=== PATIENT | male | born 1995 | race Hispanic/Latino ===

== ENCOUNTER 2021-06-28 23:06 | Emergency (ER) | payer SELFPAY ==
--- NOTE | ~2021-06-28 | XR_ITS ---
EXAMINATION: XR chest 2V DATE: 06/28/2021 23:49 INDICATION: Chest pain. Short of breath. Fever. TECHNIQUE: Frontal and lateral views of the chest were obtained. COMPARISON: None. FINDINGS: Lung volumes are small. There are airspace opacities in the lower lung zones. No pleural ef fusion or pneumothorax. The heart size is normal. IMPRESSION: 1. Small lung volumes with airspace opacities in the lower lung zones, consistent with atelectasis ve rsus pneumonia. Reviewed, dictated and finalized at location A. RICAL CONTROL MACHINE TOOL OPERATOR IMPRESSION: 1. Small lung volumes with airspace opacities in the lower lung zones, consiste nt with atelectasis versus pneumonia.
[2021-06-28 23:12] VITALS: BP 124/83; PULSE 115; RESP 20; TEMP 37; O2SAT 96
--- NOTE | 2021-06-28 23:15 | ECG_ITS ---
Measurements Intervals [place] Rate: 110 P: 146 UT: 144 QRS: 133 QRSD: 86 T: 177 QT: 313 QTc: 425 Interpretive Statements SINUS TACHYCARDIA ARM LEADS REVERSED MINIMAL Q WAVES- INFERIOR LEADS BORDERLINE T WAVE ABNORMALITY- INFERIOR LEADS ABNORMAL ECG Electronically Signed On 06-29-2021 8:02:01 BLOCKING MACHINE TENDER by Conrado Hancock D.O.
--- NOTE | 2021-06-28 23:47 | PC.NURSE ---
Patient in xray.
[2021-06-29 01:45] VITALS: PULSE 100
[2021-06-29 01:49] VITALS: BP 126/91; PULSE 96; RESP 28; O2SAT 97
[2021-06-29 01:55] VITALS: PULSE 100
[2021-06-29 02:00] VITALS: O2SAT 99
[2021-06-29] MEDS: KETOROLAC 30 MG/ML VIAL (*BKC) IV PUSH (02:01)
[2021-06-29] MEDS: ALBUTEROL SULFATE NEB 2.5 MG/0.5 ML INH 5 MG INHALATION (02:11)
[2021-06-29] MEDS: IPRATROPIUM BR 0.02% INH SOLN 0.5 MG/2.5 ML VIAL INHALATION (02:11)
[2021-06-29 02:16] LABS: Hematocrit 42.3 % (42.0-52.0); Hemoglobin 14.8 g/dL (14.0-18.0); Immature Granulocyte Absolute 0.02 K/mm3 (0.00-0.031); Immature Granulocyte Percent A 0.3 % (0-0.5); Lymphocytes Percent Auto 11.3 % (18.3-44.2); Mean Corpuscular Hemoglobin 31.8 pg (26-34); Mean Corpuscular Volume 90.8 fl (80-100); Mean Platelet Volume 9.6 fl (7.4-10.4); Monocytes Absolute Auto 0.4 K/mm3 (0.1-0.6); Monocytes Percent Auto 6.6 % (2.6-8.5); Neutrophils Absolute Auto 5.1 K/mm3 (1.3-6.7); Neutrophils Percent Auto 81.8 % (45.5-73.1); Platelet Count Result 142 k/mm3 (150-375); Red Blood Count 4.66 M/mm3 (4.6-6.20); Red Cell Distribution Width 11.8 % (11.5-14.5); White Blood Count 6.2 K/mm3 (4.5-10.0)
[2021-06-29] MEDS: BENZONATATE 100 MG CAPSULE 200 MG PO (02:22)
[2021-06-29 02:33] LABS: EDCOVIDSCREEN Negative (Negative); Partial Thromboplastin Time 28.7 SECONDS (22.3-36.8)
[2021-06-29 02:44] LABS: Alanine Aminotransferase 55 U/L (4-50); Albumin Level 4.2 g/dL (3.5-5.1); Alkaline Phosphatase 100 U/L (38-126); Anion Gap 11 mmol/L (8-16); Aspartate Amino Transferase 54 U/L (17-59); Bilirubin,Total 0.6 mg/dL (0.2-1.3); Blood Urea Nitrogen 12 mg/dL (9-20); Calcium 8.3 mg/dL (8.4-10.2); Carbon Dioxide 30 mmol/L (22-30); Chloride 96 mmol/L (98-107); Estimated Glomerular Filt Rate > 60; Glucose 116 mg/dL (65-110); Lipase 90 U/L (23-300); Potassium 3.9 mmol/L (3.4-5.0); Sodium 137 mmol/L (137-145)
[2021-06-29 02:56] LABS: Troponin I < 0.012 ng/mL (0.000-0.034)
[2021-06-29 03:03] VITALS: PULSE 88; RESP 29; O2SAT 97
--- NOTE | 2021-06-29 03:07 | ED.GENADULT ---
HPI - General Adult General Chief complaint: Chest Pain Stated complaint: Fever, cough, chest pain, sob Time Seen by Provider: 06/29/21 01:37 History of Present Illness HPI narrative: Patient 26-year-old gentleman presents emergency department with chief complaint of chest pain body aches fever. Patient states for several days reports he had some discomfort in his chest with this reports he been coughing patient states that symptoms or not improved by anything nor they worsened by anything. Patient reports he has not been vaccinated for Covid. Related Data Allergies Allergy/AdvReac Type Severity Reaction Status Date / Time No Known Allergies Allergy Verified 06/29/21 01:52 Review of Systems Review of Systems: A 10 system review of systems was completed on the patient and is negative except for what is stated in the HPI. Nursing and ancillary documentation was reviewed. Exam Narrative: GENERAL: Well-appearing, well-nourished, and in no acute distress. HEAD: Normocephalic, atraumatic. EYES: PERRLA and EOMI. ENT: Nares clear, no rhinorrhea or epistaxis. Mucous membranes moist. NECK: Supple. CHEST: Clear to auscultation. No respiratory distress. HEART: Regular rate and rhythm. No murmur heard. Normal peripheral pulses. ABDOMEN: Soft, nontender, nondistended, normal active bowel sounds. EXTREMITIES: Normal range of motion. No edema. SKIN: Warm, dry, no rash. NEURO: No focal deficits. Alert and oriented x3. PSYCH: Normal mood and affect. Course Course Emergency Course: Chest x-ray shows no evidence of focal infiltrate EKG shows sinus tachycardia rate [address] elevation or depression Vital Signs Vital signs: Vital Signs Temperature 37.0 C 06/28/21 23:12 Pulse Rate 115 H 06/28/21 23:12 Respiratory Rate 20 06/28/21 23:12 Blood Pressure 124/83 06/28/21 23:12 Pulse Oximetry 96 06/28/21 23:12 Temperature 37.0 C 06/28/21 23:12 Pulse Rate 88 06/29/21 03:03 Respiratory Rate 29 H 06/29/21 03:03 Blood Pressure 126/91 H 06/29/21 01:49 Pulse Oximetry 97 06/29/21 03:03 Medical Decision Making Vital Signs Vital Signs: Vital Signs Temperature 37.0 C 06/28/21 23:12 Pulse Rate 115 H 06/28/21 23:12 Respiratory Rate 20 06/28/21 23:12 Blood Pressure 124/83 06/28/21 23:12 Pulse Oximetry 96 06/28/21 23:12 Temperature 37.0 C 06/28/21 23:12 Pulse Rate 88 06/29/21 03:03 Respiratory Rate 29 H 06/29/21 03:03 Blood Pressure 126/91 H 06/29/21 01:49 Pulse Oximetry 97 06/29/21 03:03 Lab Data Result diagrams: 06/29/21 02:06 06/29/21 02:06 Labs: Lab Results 06/29/21 06/29/21 06/29/21 Range/Units 02:06 02:06 02:06 WBC 6.2 (4.5-10.0) K/mm3 RBC 4.66 (4.6-6.20) M/mm3 Hgb 14.8 (14.0-18.0) g/dL Hct 42.3 (42.0-52.0) % MCV 90.8 (80-100) fl MCH 31.8 (26-34) pg MCHC 35.0 (32-36) g/dl RDW 11.8 (11.5-14.5) % Plt Count 142 L (150-375) k/mm3 MPV 9.6 (7.4-10.4) fl Immature Gran % (Auto) 0.3 (0-0.5) % Neut % (Auto) 81.8 H (45.5-73.1) % Lymph % (Auto) 11.3 L (18.3-44.2) % Kerr % (Auto) 6.6 (2.6-8.5) % Eos % (Auto) 0.0 (0-4.4) % Baso % (Auto) 0.0 L (0.2-1.2) % Lymph # (Auto) 0.70 L (0.9-3.2) K/mm3 Kerr # (Auto) 0.4 (0.1-0.6) K/mm3 Eos # (Auto) 0.0 (0-0.3) K/mm3 Baso # (Auto) 0.0 (0.0-0.1) K/mm3 Abs Immat Gran (auto) 0.02 (0.00-0.031) K/mm3 Absolute Neuts (auto) 5.1 (1.3-6.7) K/mm3 Absolute Nucleated RBC 0.0 (0.0-0.012) K/mm3 Nucleated RBC % 0.0 (0.0-0.2) % PT 13.0 (11.1-14.7) Seconds INR 1.0 APTT 28.7 (22.3-36.8) SECONDS Sodium 137 (137-145) mmol/L Potassium 3.9 (3.4-5.0) mmol/L Chloride 96 L (98-107) mmol/L Carbon Dioxide 30 (22-30) mmol/L Anion Gap 11 (8-16) mmol/L BUN 12 (9-20) mg/dL Creatinine 1.00 (0.7-1.3) mg/dL Estim Creat Clear Calc Not Reportable Estimate
[2021-06-29 03:43] LABS: Troponin I < 0.012 ng/mL (0.000-0.034)
[2021-06-29 04:32] VITALS: BP 117/74; PULSE 90; RESP 25; O2SAT 97
== END 2021-06-29 04:35 | disposition home or self-care (01) ==
PROVIDERS: Emergency Provider Emergency Medicine
DX: R07.89 Other chest pain (principal); B34.9 Viral infection, unspecified; Z20.822 Contact with and (suspected) exposure to COVID-19
CPT/HCPCS: 36415; 71046; 80053; 83690; 84484; 85025; 85610; 85730; 87081; 87426; 87804; 87880; 93005; 94640; 96374; 99284; A9270; C9803; J1885

== ENCOUNTER 2021-06-29 18:27 | Inpatient (IN) | payer OTHER, SELFPAY ==
[2021-06-29] VITALS (10 sets, daily range): BP systolic 111–126; BP diastolic 67–76; PULSE 91–106; RESP 18–36; TEMP 36.5; O2SAT 89–100; BMI 28.0
--- NOTE | ~2021-06-29 | CT_ITS ---
EXAMINATION: CTA chest PE protocol DATE: 06/29/2021 21:12 VAMP CREASER INDICATION: Pneumonia. Shortness of breath. Hypoxia. TECHNIQUE: Computed tomographic angiography (CTA) of the chest was performed with 100 mL Omnipaque-35 0 intravenous contrast. The dose-length product was 801.56 mGy-cm. Maximum intensity projection 3D-re constructions of the aorta and other arteries were constructed by the technologist on a separate work station. Automated exposure control and iterative reconstruction technique were employed. COMPARISON: None. FINDINGS: Small hiatal hernia. Heart size is normal. No significant pleural or pericardial effusion. Study is technically adequate without evidence for pulmonary embolism. Evaluation of lower lobe pulmo nary arteries limited by motion. No thoracic lymphadenopathy. No significant pleural or pericardial e ffusion. The upper abdomen is unremarkable. Patchy bilateral groundglass opacities, consistent with p neumonia. No endobronchial lesions. IMPRESSION: 1. Patchy groundglass opacities bilaterally, consistent with pneumonia. Reviewed, dictated and finalized at location A. CREASER
--- NOTE | 2021-06-29 19:14 | ECG_ITS ---
Measurements Intervals [place] Rate: 101 P: 47 AL: 155 QRS: 55 QRSD: 88 T: 30 QT: 318 QTc: 413 Interpretive Statements SINUS TACHYCARDIA MINIMAL Q WAVES- INFERIOR LEADS BORDERLINE ECG Electronically Signed On 06-29-2021 20:22:45 MANAGER OF PHARMACY by Conrado Hancock D.O.
--- NOTE | 2021-06-29 19:16 | ED.GENADULT ---
HPI - General Adult General Chief complaint: Shortness of Breath/Dyspnea Stated complaint: respiratory Time Seen by Provider: 06/29/21 19:00 Source: patient and RN notes reviewed History of Present Illness HPI narrative: Patient is a 26 y/o male complaining of moderate SOB for 4 days. There is no alleviating or exacerbating factor. He also has cough and chest pain. He was seen earlier today and had COVID test, which was negative. He returned because he continues to have SOB. Related Data Allergies Allergy/AdvReac Type Severity Reaction Status Date / Time No Known Allergies Allergy Verified 06/29/21 01:52 Review of Systems Constitutional: Constitutional: Denies chills, Denies fever(s), Denies headache(s) and Denies weakness Eyes: Eyes: Denies blurry vision ENT: Denies headache(s) and Denies neck pain Cardiovascular: Cardiovascular: Reports chest pain and Reports dyspnea Respiratory: Respiratory: Reports cough and Reports dyspnea Gastrointestinal: Gastrointestinal: Denies abdominal pain, Denies diarrhea, Denies nausea and Denies vomiting Genitourinary: Genitourinary: Denies hematuria and Denies dysuria Musculoskeletal: Musculoskeletal: Denies back pain and Denies neck pain Neurologic: Denies headache(s) and Denies weakness Exam Const: General: no acute distress and well developed Orientation/consciousness: oriented to person, oriented to place, oriented to time and patient oriented x3 HENMT: Head: normocephalic Ears: external ears normal General nose exam: Normal external nose present Eyes: General: appearance normal, both eyes and all related structures Conjunctivae: conjunctivae normal Neck: Neck: normal visual inspection and full ROM Chest: Chest palpation & inspection: normal inspection of the chest and no tenderness Resp: Effort & Inspection: tachypneic Auscultation: clear to auscultation bilaterally Cardio: Rate: regular rate Rhythm: regular rhythm GI: GI Palp: No abdominal tenderness and Yes Soft to palpation Skin: General skin exam: normal color and turgor normal Neuro: General: oriented to person, oriented to place, oriented to time and patient oriented x3 Cognition (Neuro): normal cognition Extrem: General: normal to inspection, full ROM and no pedal edema Psych: Appearance: grossly normal Mental Status: mental status grossly normal Affect: normal affect Course Reevaluation(s) Reevaluation #1: Patient had pulse ox of 89-90% on RA. He is placed back on O2. Date: 06/29/21 Time: 21:25 Consultations Consultation #1: Discussed with Dr. Galeano, who agrees to admit. Date: 06/29/21 Time: 21:33 Vital Signs Vital signs: Vital Signs Pulse Rate 106 H 06/29/21 18:38 Respiratory Rate 36 H 06/29/21 18:38 Blood Pressure 126/75 06/29/21 18:38 Pulse Oximetry 95 06/29/21 18:38 Pulse Rate 99 06/29/21 22:22 Respiratory Rate 23 H 06/29/21 22:22 Blood Pressure 122/76 06/29/21 22:22 Pulse Oximetry 100 06/29/21 22:22 Medical Decision Making Vital Signs Vital Signs: Vital Signs Pulse Rate 106 H 06/29/21 18:38 Respiratory Rate 36 H 06/29/21 18:38 Blood Pressure 126/75 06/29/21 18:38 Pulse Oximetry 95 06/29/21 18:38 Pulse Rate 99 06/29/21 22:22 Respiratory Rate 23 H 06/29/21 22:22 Blood Pressure 122/76 06/29/21 22:22 Pulse Oximetry 100 06/29/21 22:22 Lab Data Result diagrams: 06/29/21 19:50 06/29/21 19:50 Labs: Lab Results 06/29/21 06/29/21 06/29/21 Range/Units 19:50 19:50 20:03 WBC 9.1 (4.5-10.0) K/mm3 RBC 4.43 L (4.6-6.20) M/mm3 Hgb 13.9 L (14.0-18.0) g/dL Hct 40.4 L (42.0-52.0) % MCV 91.2 (80-100) fl MCH 31.4 (26-34) pg MCHC 34.4 (32-36) g/dl RDW 11.8 (11.5-14.5) % Plt Count 185 (150-375) k/mm3 MPV 9.3 (7.4-10.4) fl Immature Gran % (Auto) 0.4 (0-0.5) % Neut % (Auto) 84.3 H (45.5-73.1) % Lymph % (Auto) 9.3 L (18.3-44.2) % Mon
--- NOTE | 2021-06-29 19:24 | PC.NURSE ---
Assumed care of pt at this time. Pt alert and upright on stretcher, on 2L NC. Per EDP Raymond, discontinue O2. If O2 saturations drop, restart oxygen therapy.
[2021-06-29 20:04] LABS: Basophils Percent Auto 0.2 % (0.2-1.2); Hematocrit 40.4 % (42.0-52.0); Hemoglobin 13.9 g/dL (14.0-18.0); Immature Granulocyte Absolute 0.04 K/mm3 (0.00-0.031); Immature Granulocyte Percent A 0.4 % (0-0.5); Lymphocytes Absolute Auto 0.85 K/mm3 (0.9-3.2); Lymphocytes Percent Auto 9.3 % (18.3-44.2); Mean Corpuscular HGB Conc 34.4 g/dl (32-36); Mean Corpuscular Hemoglobin 31.4 pg (26-34); Mean Corpuscular Volume 91.2 fl (80-100); Mean Platelet Volume 9.3 fl (7.4-10.4); Monocytes Absolute Auto 0.5 K/mm3 (0.1-0.6); Monocytes Percent Auto 5.8 % (2.6-8.5); Neutrophils Absolute Auto 7.7 K/mm3 (1.3-6.7); Neutrophils Percent Auto 84.3 % (45.5-73.1); Platelet Count Result 185 k/mm3 (150-375); Red Blood Count 4.43 M/mm3 (4.6-6.20); Red Cell Distribution Width 11.8 % (11.5-14.5); White Blood Count 9.1 K/mm3 (4.5-10.0)
--- NOTE | 2021-06-29 20:05 | PCRCNOTE ---
pt not cooperative for ABG. therapist unable to obtain. notified.
[2021-06-29 20:20] LABS: Alanine Aminotransferase 47 U/L (4-50); Albumin Level 4.2 g/dL (3.5-5.1); Alkaline Phosphatase 92 U/L (38-126); Anion Gap 9 mmol/L (8-16); Aspartate Amino Transferase 43 U/L (17-59); Bilirubin,Total 0.9 mg/dL (0.2-1.3); Blood Urea Nitrogen 11 mg/dL (9-20); Calcium 8.2 mg/dL (8.4-10.2); Carbon Dioxide 29 mmol/L (22-30); Chloride 95 mmol/L (98-107); Estimated CRCL calculation 87 ml/min; Estimated Glomerular Filt Rate > 60; Glucose 116 mg/dL (65-110); Potassium 3.8 mmol/L (3.4-5.0); Sodium 133 mmol/L (137-145)
[2021-06-29 20:30] LABS: NT Pro B Type Natriuretic Pept 20 pg/mL (5-100)
[2021-06-29] MEDS: DEXAMETHASONE SOD PHOS INJ 4 MG/ML VIAL 6 MG IV PUSH (21:25)
[2021-06-29] MEDS: ALBUTEROL SULFATE (*SP) INHALER 1 PUFF (21:45)
--- NOTE | 2021-06-29 23:34 | PM.IMHP ---
H&P: HPI History of Present Illness Date/Time: 06/29/21 23:34 Chief Complaint: Shortness of breath Narrative: Patient is a 26 y/o male who presents back to the ED again today for worsening shortness of breath and chest pain along with cough. He was seen earlier today for the similar symptoms and was tested for COVID which came back negative. He has been having the symptoms for past 4 5 days now. He denies any exposure to COVID. He was not hypoxemic earlier today and was sent home on supportive treatment. He comes back with worsening shortness of breath and was noted to be hypoxic needing few L of oxygen supplementation. CTA was done which was negative for PE but does show pneumonia on bilateral lungs. Of PCR COVID is sent out again as COVID is highly suspected with the appearance of the CTA lung findings. He is admitted for further evaluation and management. Review of Systems Review of Systems: - CONSTITUTIONAL: Denies weight loss, reports fever and chills. - HEENT: Denies changes in vision and hearing - RESPIRATORY: Reports SOB and cough. - CV: Denies palpitations and reports CP. - GI: Denies abdominal pain, nausea, vomiting and diarrhea. - : Denies dysuria and urinary frequency. - MSK: Denies myalgia and joint pain. - SKIN: Denies rash and pruritus. - NEUROLOGICAL: Denies headache and syncope. - PSYCHIATRIC: Denies recent changes in mood. Denies anxiety and depression. All systems reviewed & are unremarkable except as noted in HPI and below Constitutional: Constitutional: Reports fatigue and Reports weakness Neurologic: Reports weakness Endocrine: Endocrine: Reports fatigue Meds Home Medications and Allergies Home Medications Medication Instructions Recorded Confirmed Type albuterol sulfate 2 puff INHALATION QID PRN #8.5 g 06/29/21 Rx benzonatate 200 mg PO TID PRN #21 cap 06/29/21 Rx Allergies Allergy/AdvReac Type Severity Reaction Status Date / Time No Known Allergies Allergy Verified 06/29/21 01:52 Vital Signs Vital Signs - 24 hr 06/29/21 18:38 06/29/21 19:26 06/29/21 20:12 Pulse Rate 106 H 104 H 103 H Respiratory Rate 36 H 31 H 29 H Blood Pressure 126/75 116/71 111/69 Pulse Oximetry 95 94 95 06/29/21 21:11 06/29/21 21:20 06/29/21 21:21 Pulse Rate 105 H Respiratory Rate 30 H Blood Pressure Pulse Oximetry 94 89 L 94 06/29/21 22:11 06/29/21 22:22 Pulse Rate 99 Respiratory Rate 23 H Blood Pressure 122/76 Pulse Oximetry 98 100 Exam Narrative: GENERAL: The patient is well developed, not in acute distress HEENT: Nonicteric sclerae, PERRLA, EOMI. Oropharynx clear. Moist mucous membranes. Conjunctivae appear well perfused. CHEST: Chest wall is nontender. HEART: Regular rate and rhythm without murmur, rubs, or gallops LUNGS: Coarse breath sounds bilaterally. no respiratory distress ABDOMEN: Soft, positive bowel sounds, non-tender, no organomegaly. SKIN: No rash, no excessive bruising, petechiae, or purpura. NEUROLOGIC: Cranial nerves II-XII intact, alert and oriented x 3, no gross motor deficits EXTREMITIES: no edema, cyanosis or clubbing H&P: Results Labs Labs: Short CBC 06/29/21 Range/Units 19:50 WBC 9.1 (4.5-10.0) K/mm3 Hgb 13.9 L (14.0-18.0) g/dL Hct 40.4 L (42.0-52.0) % Plt Count 185 (150-375) k/mm3 BMP 06/29/21 19:50 Sodium 133 L Potassium 3.8 Chloride 95 L Carbon Dioxide 29 BUN 11 Creatinine 1.00 Glucose 116 H Calcium 8.2 L Liver Function 06/29/21 Range/Units 19:50 Total Bilirubin 0.9 (0.2-1.3) mg/dL AST 43 (17-59) U/L ALT 47 (4-50) U/L Alkaline Phosphatase 92 (38-126) U/L Albumin 4.2 (3.5-5.1) g/dL Assessment and Plan Assessment and plan (1) Acute respiratory failure with hypoxia: Code(s): J96.01 - Acute respiratory failure with hypoxia Status: Acute (2) Pneumonia: Qualifiers: Laterality: bilateral Lung location: unspecified part o
[2021-06-30 04:00] VITALS: BP 113/69; PULSE 81; RESP 18; TEMP 36.4; O2SAT 98
[2021-06-30 06:25] LABS: CRP 5.3 mg/dL (<1.0); Lactate Dehydrogenase 766 U/L (313-618)
[2021-06-30 07:01] VITALS: BMI 28.0
--- NOTE | 2021-06-30 07:04 | PC.NURSE ---
[address] Admission Note: The patient,Phani Bedoya,26 y/o, was given written information regarding hospital policies, unit procedures and contact persons. Patient's smoking status: . I certify that the inpatient services were ordered in accordance with Medicare regulations governing the order. This includes certification that hospital inpatient services are reasonable and necessary and in the case of services not specified as inpatient-only under 42 CFR 419.22(n), that they are appropriately provided as inpatient services in accordance to with the 2-midnight benchmark under 43 CFR 412.3(e)
[2021-06-30 07:07] VITALS: BMI 28.0
[2021-06-30] MEDS: ENOXAPARIN 40 MG/0.4 ML SYRINGE SUB-Q (10:06)
[2021-06-30 12:00] VITALS: BP 113/63; PULSE 88; RESP 18; TEMP 35.9; O2SAT 99
[2021-06-30 16:00] VITALS: BP 128/70; PULSE 89; RESP 18; TEMP 36.4; O2SAT 98
--- NOTE | 2021-06-30 16:56 | PM.IMPN ---
Progress Note: A&P Assessment and Plan (1) Acute respiratory failure with hypoxia: Code(s): J96.01 - Acute respiratory failure with hypoxia Status: Acute Assessment and Plan: Secondary to pneumonia. CTA negative for PE. He has required up to 2 L per nasal cannula. Continue supplemental O2 as needed with goal saturation 92% or above He will need a home O2 eval prior to discharge (2) Pneumonia: Qualifiers: Laterality: bilateral Lung location: unspecified part of lung Pneumonia type: due to unspecified organism Qualified Code(s): J18.9 - Pneumonia, unspecified organism Code(s): J18.9 - Pneumonia, unspecified organism Status: Acute Assessment and Plan: CXR and CTA show bilateral ground-glass opacities. Clinical picture is highly suspicious for COVID-19 with elevated inflammatory markers. Continue azithromycin and ceftriaxone while awaiting COVID-19 test results or procalcitonin levels Continue IV dexamethasone Consider addition of remdesivir if further O2 requirements. Supportive care to include bronchodilators, expectorants, antipyretics, incentive spirometry Supplemental O2 as needed Blood cultures are pending (3) Person under investigation for COVID-19: Code(s): Z20.822 - Contact with and (suspected) exposure to COVID-19 Status: Acute Assessment and Plan: He denies any recent COVID-19 positive contacts. He has not been vaccinated for COVID Rapid COVID test negative, however clinically highly suspicious for COVID. PCR is pending. Will continue with treatment as above while awaiting confirmatory testing with PCR Continue to trend inflammatory markers Subjective Date/time seen: 06/30/21 16:56 Interval history: Date of service: 06/30/2020 Phani Bedoya is a 26-year-old previously healthy male who is seen in follow-up for pneumonia, under investigation for COVID-19. He is feeling quite short of breath today. Any deep breaths or exertion caused him to feel more short of breath. He has pleuritic chest discomfort with deep inspiration. He endorses dry cough. He feels that he has sputum he needs to expectorates but is unable to. His appetite is good. He denies anosmia or dysgeusia. He is eating well. Endorsed sweats but denies fevers or chills. Denies abdominal pain, nausea, or vomiting. No diarrhea. Reports regular bowel movements. Denies urinary symptoms. Denies headache or body aches. Review of Systems Review of Systems: All systems reviewed & are unremarkable except as noted in HPI and below Exam Narrative: Mr. Bedoya is well-nourished, well-appearing 26-year-old male who is lying supine in bed. He appears comfortable and is in NARD. Neuro: awake, alert and oriented x4, speech clear, no focal neuro deficits noted HEENMT: normocephalic, atraumatic, EOMI, sclerae anicteric Neck: supple, no lymphadenopathy Respiratory: Diminished breath sounds bilaterally without crackles, rhonchi, or wheezes, nonlabored breathing Cardio: regular rate, regular rhythm with S1-S2 Abdomen: nondistended, normoactive bowel sounds, soft, nontender to palpation Extremities: no edema, erythema, or tenderness to palpation, DP pulses 2+ bilaterally Skin: no rashes or lesions, warm and dry Psych: appropriate mood and affect, judgment and insight intact Objective Data Vital Signs Vital Signs: Vital Signs - 24 hr 06/29/21 18:38 06/29/21 19:26 06/29/21 20:12 Temperature Pulse Rate 106 H 104 H 103 H Respiratory Rate 36 H 31 H 29 H Blood Pressure 126/75 116/71 111/69 Pulse Oximetry 95 94 95 06/29/21 21:11 06/29/21 21:20 06/29/21 21:21 Temperature Pulse Rate 105 H Respiratory Rate 30 H Blood Pressure Pulse Oximetry 94 89 L 94 06/29/21 22:11 06/29/21 22:22 06/29/21 23:23 Temperature Pulse Rate 99 99 Respiratory Rate 23 H 28 H Blood Pressure 122/76 Pulse Oximetry 98 100 96 06/29/21 23:30 06/30/21 04
[2021-06-30 19:54] LABS: SARS-CoV-2 RNA PCR Positive (Negative)
[2021-06-30 20:00] VITALS: BP 134/71; PULSE 77; RESP 20; TEMP 36.7; O2SAT 94; O2SAT 95
[2021-06-30] MEDS: guaiFENesin 12 HR 600 MG TABCR PO (21:58)
[2021-06-30 23:47] VITALS: BP 118/65; PULSE 73; RESP 18; TEMP 36.2; O2SAT 98
[2021-07-01 04:00] VITALS: BP 119/67; PULSE 78; RESP 18; TEMP 36.8; O2SAT 99
[2021-07-01] MEDS: ALBUTEROL SULFATE (*SP) INHALER 2 PUFF INHALATION (04:46)
[2021-07-01] MEDS: ACETAMINOPHEN 325 MG TABLET 650 MG PO ×3 (05:56→21:42)
[2021-07-01 08:00] VITALS: BP 110/63; PULSE 75; RESP 20; TEMP 36.6; O2SAT 96
[2021-07-01 09:16] LABS: Basophils Percent Auto 0.1 % (0.2-1.2); Hemoglobin 13.8 g/dL (14.0-18.0); Immature Granulocyte Absolute 0.09 K/mm3 (0.00-0.031); Immature Granulocyte Percent A 0.6 % (0-0.5); Lymphocytes Absolute Auto 0.73 K/mm3 (0.9-3.2); Lymphocytes Percent Auto 4.8 % (18.3-44.2); Mean Corpuscular HGB Conc 34.5 g/dl (32-36); Mean Corpuscular Hemoglobin 31.7 pg (26-34); Monocytes Absolute Auto 0.8 K/mm3 (0.1-0.6); Neutrophils Absolute Auto 13.6 K/mm3 (1.3-6.7); Neutrophils Percent Auto 89.5 % (45.5-73.1); Platelet Count Result 292 k/mm3 (150-375); Red Blood Count 4.35 M/mm3 (4.6-6.20); Red Cell Distribution Width 11.9 % (11.5-14.5); White Blood Count 15.2 K/mm3 (4.5-10.0)
[2021-07-01 09:19] LABS: Alanine Aminotransferase 68 U/L (4-50); Estimated CRCL calculation 107 ml/min; Estimated Glomerular Filt Rate > 60
[2021-07-01 09:20] LABS: Prothrombin Time 13.5 Seconds (11.1-14.7)
[2021-07-01 10:18] LABS: Alanine Aminotransferase 71 U/L (4-50); Albumin Level 4.2 g/dL (3.5-5.1); Alkaline Phosphatase 93 U/L (38-126); Anion Gap 7 mmol/L (8-16); Aspartate Amino Transferase 48 U/L (17-59); Bilirubin,Total 0.6 mg/dL (0.2-1.3); Blood Urea Nitrogen 21 mg/dL (9-20); CRP 2.5 mg/dL (<1.0); Calcium 8.8 mg/dL (8.4-10.2); Carbon Dioxide 30 mmol/L (22-30); Chloride 96 mmol/L (98-107); Estimated CRCL calculation 107 ml/min; Estimated Glomerular Filt Rate > 60; Glucose 124 mg/dL (65-110); Lactate Dehydrogenase 613 U/L (313-618); Sodium 133 mmol/L (137-145)
[2021-07-01] MEDS: ENOXAPARIN 40 MG/0.4 ML SYRINGE SUB-Q (11:37)
[2021-07-01] MEDS: guaiFENesin 12 HR 600 MG TABCR PO ×2 (11:37→20:38)
[2021-07-01 12:00] VITALS: BP 120/75; PULSE 85; RESP 18; TEMP 36.4; O2SAT 99
[2021-07-01] MEDS: REMDESIVIR 200 MG/NS 250 ML 200 MG/250 ML BAG 250 MG IVPB (12:16)
--- NOTE | 2021-07-01 14:36 | PM.IMPN ---
Progress Note: A&P Assessment and Plan (1) Acute respiratory failure with hypoxia: Code(s): J96.01 - Acute respiratory failure with hypoxia Status: Acute Assessment and Plan: Secondary to COVID-19 pneumonia. CTA negative for PE. He has required up to 4 L per nasal cannula. Currently maintaining adequate O2 sats on 3 L per nasal cannula Continue supplemental O2 as needed with goal saturation 92% or above He will need a home O2 eval prior to discharge (2) Pneumonia due to COVID-19 virus: Code(s): U07.1 - COVID-19; J12.82 - Pneumonia due to coronavirus disease 2018 Status: Acute Assessment and Plan: Positive PCR test on 06/29/2021 (rapid test was negative). CXR and CTA showed bilateral ground-glass opacities Continue dexamethasone, dose #3 today Initiate remdesivir. Monitor LFTs. ALT mildly elevated at 71 today. At this time, will discontinue azithromycin and ceftriaxone. No signs/symptoms to suggest secondary bacterial pneumonia Supportive care to include bronchodilators, expectorants, antipyretics, incentive spirometry Supplemental O2 as needed Preliminary blood cultures negative Continue isolation precautions Trend inflammatory markers He has not been vaccinated for COVID-19 Subjective Date/time seen: 07/01/21 14:36 Interval history: Date of service: 07/01/2020 Phani Bedoya is a 26-year-old previously healthy male who is seen in follow-up for COVID-19 pneumonia. Continues to endorse shortness breath, though slightly improved from yesterday. Also still endorsing pleuritic chest pain with cough. Cough is dry, no sputum production. No hemoptysis. No nausea or vomiting. He is feeling a little bit lightheaded after having coughing spells. Endorses subjective fevers but has not had an elevated temperature. Denies chills. Eating well. He is able to get up and ambulate to the bathroom without significant ASHLEY. Review of Systems Review of Systems: All systems reviewed & are unremarkable except as noted in HPI and below Exam Narrative: Mr. Bedoya is well-nourished, well-appearing 26-year-old male who is lying supine in bed. He appears comfortable and is in NARD. Neuro: awake, alert and oriented x4, speech clear, no focal neuro deficits noted HEENMT: normocephalic, atraumatic, EOMI, sclerae anicteric Neck: supple, no lymphadenopathy Respiratory: Diminished breath sounds bilaterally without crackles, rhonchi, or wheezes, nonlabored breathing Cardio: regular rate, regular rhythm with S1-S2 Abdomen: nondistended, normoactive bowel sounds, soft, nontender to palpation Extremities: no edema, erythema, or tenderness to palpation, DP pulses 2+ bilaterally Skin: no rashes or lesions, warm and dry Psych: appropriate mood and affect, judgment and insight intact Objective Data Vital Signs Vital Signs: Vital Signs - 24 hr 06/30/21 16:00 06/30/21 20:00 06/30/21 23:47 Temperature 97.5 F L 98.1 F 97.2 F L Pulse Rate 89 77 73 Respiratory Rate 18 20 18 Blood Pressure 128/70 134/71 118/65 Pulse Oximetry 98 95 98 07/01/21 04:00 07/01/21 08:00 07/01/21 12:00 Temperature 98.2 F 97.9 F 97.6 F Pulse Rate 78 75 85 Respiratory Rate 18 20 18 Blood Pressure 119/67 110/63 120/75 Pulse Oximetry 99 96 99 Intake/Output Intake/Output: Intake & Output 06/28/21 06/29/21 06/30/21 07/01/21 23:59 23:59 23:59 23:59 Intake Total 50 660 840 Balance 50 660 840 Meds/Results Medications: Active Medications Generic Name Dose Route Start Last Admin Trade Name Freq PRN Reason Stop Dose Admin Acetaminophen 650 mg 06/30/21 17:04 07/01/21 12:15 Acetaminophen 325 Mg Tablet PO 650 mg Q4H PRN Administration Headache Albuterol 2 puff 07/01/21 04:32 07/01/21 04:46 Albuterol Sulfate (*Sp) Inhaler INHALATION 2 puff Q6HRT PRN Administration Shortness Of Breath Dexamethasone Sodium Phosphate 6 mg 06/30/21 09:00 07/01/21 11:37 Dexametha
[2021-07-01 16:00] VITALS: BP 112/70; PULSE 77; RESP 18; TEMP 36.4; O2SAT 98
[2021-07-01 20:00] VITALS: BP 107/71; PULSE 70; RESP 20; TEMP 36.5; O2SAT 98
[2021-07-02] VITALS (11 sets, daily range): BP systolic 105–133; BP diastolic 57–69; PULSE 51–76; RESP 16–22; TEMP 36.1–37; O2SAT 93–99
[2021-07-02 07:15] LABS: Hematocrit 42.1 % (42.0-52.0); Hemoglobin 14.2 g/dL (14.0-18.0); Mean Corpuscular HGB Conc 33.7 g/dl (32-36); Mean Corpuscular Hemoglobin 31.2 pg (26-34); Mean Corpuscular Volume 92.5 fl (80-100); Mean Platelet Volume 9.4 fl (7.4-10.4); Platelet Count Result 380 k/mm3 (150-375); Red Blood Count 4.55 M/mm3 (4.6-6.20); Red Cell Distribution Width 11.9 % (11.5-14.5); White Blood Count 10.3 K/mm3 (4.5-10.0)
[2021-07-02 07:27] LABS: INR 1.1; Prothrombin Time 14.3 Seconds (11.1-14.7)
[2021-07-02 07:36] LABS: Alanine Aminotransferase 69 U/L (4-50); Albumin Level 4.2 g/dL (3.5-5.1); Alkaline Phosphatase 91 U/L (38-126); Anion Gap 9 mmol/L (8-16); Aspartate Amino Transferase 43 U/L (17-59); Bilirubin,Total 0.6 mg/dL (0.2-1.3); Blood Urea Nitrogen 21 mg/dL (9-20); CRP 1.2 mg/dL (<1.0); Calcium 8.8 mg/dL (8.4-10.2); Carbon Dioxide 31 mmol/L (22-30); Chloride 98 mmol/L (98-107); Estimated CRCL calculation 107 ml/min; Estimated Glomerular Filt Rate > 60; Glucose 105 mg/dL (65-110); Lactate Dehydrogenase 575 U/L (313-618); Potassium 3.8 mmol/L (3.4-5.0); Sodium 138 mmol/L (137-145)
--- NOTE | 2021-07-02 08:34 | PM.IMPN ---
Progress Note: A&P Assessment and Plan (1) Acute respiratory failure with hypoxia: Code(s): J96.01 - Acute respiratory failure with hypoxia Status: Acute Assessment and Plan: Secondary to COVID-19 pneumonia. CTA negative for PE. He has required up to 4 L per nasal cannula. Currently maintaining adequate O2 sats on 3 L per nasal cannula Continue supplemental O2 as needed with goal saturation 92% or above He will need a home O2 eval prior to discharge (2) Pneumonia due to COVID-19 virus: Code(s): U07.1 - COVID-19; J12.82 - Pneumonia due to coronavirus disease 2018 Status: Acute Assessment and Plan: Positive PCR test on 06/29/2021 (rapid test was negative). CXR and CTA showed bilateral ground-glass opacities Continue dexamethasone, dose #4 today Continue Remdesivir (#2). Monitor LFTs. ALT 69 today. Supportive care to include bronchodilators, expectorants, antipyretics, incentive spirometry Supplemental O2 as needed Preliminary blood cultures negative Continue isolation precautions Inflammatory markers trending down He has not been vaccinated for COVID-19 Subjective Date/time seen: 07/02/21 08:34 Interval history: Date of service: 07/02/2020 Phani Bedoya is a 26-year-old previously healthy male who is seen in follow-up for COVID-19 pneumonia. He feels a little bit better today. He reports cough is improving. Very minimal sputum production. No longer endorsing pleuritic pain with cough. Still feels warm with occasional sweats but no fevers or chills. No dizziness or lightheadedness. No issues with ambulation. No significant ASHLEY. Regular BM this morning. No urinary symptoms. No N/V. Eating well. Review of Systems Review of Systems: All systems reviewed & are unremarkable except as noted in HPI and below Exam Narrative: Mr. Bedoya is well-nourished, well-appearing 26-year-old male who is lying supine in bed. He appears comfortable and is in NARD. Neuro: awake, alert and oriented x4, speech clear, no focal neuro deficits noted HEENMT: normocephalic, atraumatic, EOMI, sclerae anicteric Neck: supple, no lymphadenopathy Respiratory: Diminished breath sounds bilaterally without crackles, rhonchi, or wheezes, nonlabored breathing Cardio: regular rate, regular rhythm with S1-S2 Abdomen: nondistended, normoactive bowel sounds, soft, nontender to palpation Extremities: no edema, erythema, or tenderness to palpation, DP pulses 2+ bilaterally Skin: no rashes or lesions, warm and dry Psych: appropriate mood and affect, judgment and insight intact Objective Data Vital Signs Vital Signs: Vital Signs - 24 hr 07/01/21 12:00 07/01/21 16:00 07/01/21 20:00 Temperature 97.6 F 97.5 F L 97.7 F Pulse Rate 85 77 70 Respiratory Rate 18 18 20 Blood Pressure 120/75 112/70 107/71 Pulse Oximetry 99 98 98 07/02/21 00:00 07/02/21 04:00 Temperature 97.9 F 97.6 F Pulse Rate 73 76 Respiratory Rate 22 H 20 Blood Pressure 110/69 115/62 Pulse Oximetry 97 96 Intake/Output Intake/Output: Intake & Output 06/29/21 06/30/21 07/01/21 07/02/21 23:59 23:59 23:59 23:59 Intake Total 50 660 2240 400 Balance 50 660 2240 400 Meds/Results Medications: Active Medications Generic Name Dose Route Start Last Admin Trade Name Freq PRN Reason Stop Dose Admin Acetaminophen 650 mg 06/30/21 17:04 07/01/21 21:42 Acetaminophen 325 Mg Tablet PO 650 mg Q4H PRN Administration Headache Albuterol 2 puff 07/01/21 04:32 07/01/21 04:46 Albuterol Sulfate (*Sp) Inhaler INHALATION 2 puff Q6HRT PRN Administration Shortness Of Breath Dexamethasone Sodium Phosphate 6 mg 06/30/21 09:00 07/01/21 11:37 Dexamethasone Sod Phos Inj 10 Mg/Ml 1 Ml Vial IV PUSH 07/08/21 09:01 6 mg DAILY FRANKIE Administration Enoxaparin Sodium 40 mg 06/30/21 09:00 07/01/21 11:37 Enoxaparin 40 Mg/0.4 Ml Syringe SUB-Q 40 mg DAILY FRANKIE Administration Guaifenesin 600 mg
[2021-07-02] MEDS: ENOXAPARIN 40 MG/0.4 ML SYRINGE SUB-Q (09:42)
[2021-07-02] MEDS: guaiFENesin 12 HR 600 MG TABCR PO ×2 (09:42→22:45)
[2021-07-02] MEDS: REMDESIVIR 100 MG/NS 250 ML 100 MG/250 ML BAG 250 MG IVPB (09:43)
[2021-07-02] MEDS: ACETAMINOPHEN 325 MG TABLET 650 MG PO (09:45)
[2021-07-03 05:47] VITALS: BP 109/54; PULSE 51; RESP 16; TEMP 36.1; O2SAT 99
[2021-07-03 06:34] LABS: INR 1.2; Prothrombin Time 15.1 Seconds (11.1-14.7)
[2021-07-03 06:42] LABS: Hematocrit 39.9 % (42.0-52.0); Hemoglobin 13.5 g/dL (14.0-18.0); Mean Corpuscular HGB Conc 33.8 g/dl (32-36); Mean Corpuscular Hemoglobin 31.8 pg (26-34); Mean Corpuscular Volume 94.1 fl (80-100); Mean Platelet Volume 8.9 fl (7.4-10.4); Platelet Count Result 370 k/mm3 (150-375); Red Blood Count 4.24 M/mm3 (4.6-6.20); White Blood Count 8.1 K/mm3 (4.5-10.0)
[2021-07-03 06:50] LABS: Alanine Aminotransferase 55 U/L (4-50); Albumin Level 3.5 g/dL (3.5-5.1); Alkaline Phosphatase 76 U/L (38-126); Anion Gap 9 mmol/L (8-16); Aspartate Amino Transferase 30 U/L (17-59); Bilirubin,Total 0.5 mg/dL (0.2-1.3); Blood Urea Nitrogen 24 mg/dL (9-20); Calcium 8.5 mg/dL (8.4-10.2); Carbon Dioxide 27 mmol/L (22-30); Chloride 102 mmol/L (98-107); Estimated CRCL calculation 107 ml/min; Estimated Glomerular Filt Rate > 60; Glucose 96 mg/dL (65-110); Potassium 4.6 mmol/L (3.4-5.0); Sodium 138 mmol/L (137-145)
[2021-07-03 08:00] VITALS: BP 106/65; PULSE 57; RESP 16; TEMP 36.3; O2SAT 98
[2021-07-03 09:30] VITALS: PULSE 80; O2SAT 98
[2021-07-03 09:35] VITALS: PULSE 99; O2SAT 96
[2021-07-03 09:45] VITALS: PULSE 82; O2SAT 96
--- NOTE | 2021-07-03 10:02 | HOMEO2EVAL ---
Evaluation was performed at [facility] Home Oxygen Evaluation RC: Home Oxygen (O2) Evaluation Start: 07/03/21 07:15 Freq: ONCE Status: Active Protocol: RPE Activity Type Activity Date Activity User E-Sign Co-Sign Detail Recorded Client Recorded Date Recorded By Document 07/03/21 09:30 [email or web address] [email or web address] 07/03/21 10:01 SHEY Document 07/03/21 09:35 [email or web address] [email or web address] 07/03/21 10:01 SHEY Document 07/03/21 09:45 [email or web address] [email or web address] 07/03/21 10:01 SHEY 07/03/21 07/03/21 07/03/21 09:30 09:35 09:45 Home O2 Evaluation Test Phase Resting Exercise Resting Oxygen Delivery Room Air Room Air Room Air Pulse Oximetry (90-100 %) 98 96 96 Pulse Rate (60-100 beats/min) 80 99 82 Home Oxygen Evaluation Comments PT WEAK, NO HOME O2 NEEDED Treatment Charges O2 Evaluation - Inpatient
--- NOTE | 2021-07-03 10:02 | PCRCNOTE ---
HOME O2 EVAL COMPLETE. NO HOME O2 NEEDED. PT VERY WEAK, APPEARS LIGHTHEADED, WALKED TO BATHROOM AND BACK TO BED.
[2021-07-03] MEDS: REMDESIVIR 100 MG/NS 250 ML 100 MG/250 ML BAG 250 MG IVPB (10:35)
[2021-07-03] MEDS: guaiFENesin 12 HR 600 MG TABCR PO (10:36)
[2021-07-03] MEDS: ENOXAPARIN 40 MG/0.4 ML SYRINGE SUB-Q (10:37)
[2021-07-03] MEDS: BENZONATATE 100 MG CAPSULE PO (10:37)
[2021-07-03 12:00] VITALS: BP 100/60; BP 113/62; BP 114/61; PULSE 59; RESP 16; TEMP 36.2; O2SAT 97
--- NOTE | 2021-07-03 13:22 | PM.DS ---
DS: Admitting Diagnosis Discharge Date 07/03/2021 Admitting Diagnosis COVID-19 pneumonia DS: Discharge Diagnosis Discharge Diagnosis (1) Acute respiratory failure with hypoxia: Code(s): J96.01 - Acute respiratory failure with hypoxia Status: Acute Assessment and Plan: Secondary to COVID-19 pneumonia. CTA negative for PE. He required up to 4 L supplemental O2 per nasal cannula. He was able to be weaned to room air and maintained adequate O2 sats. Home O2 eval performed on 07/03/2021 with no need for supplemental oxygen with rest or with exertion. (2) Pneumonia due to COVID-19 virus: Code(s): U07.1 - COVID-19; J12.82 - Pneumonia due to coronavirus disease 2019 Status: Acute Assessment and Plan: Positive PCR test on 06/29/2021 (rapid test was negative). CXR and CTA showed bilateral ground-glass opacities. Received IV dexamethasone and remdesivir which was discontinued when he was no longer requiring supplemental oxygen. LFTs monitored while on remdesivir and remained stable. Supportive care provided including bronchodilators, expectorants, antipyretics, incentive spirometry. Preliminary blood cultures negative after 72 hours, final cultures will be monitored. Inflammatory markers did improve. He was not vaccinated for COVID-19. Discussed that he was eligible for vaccination 90 days following illness. He will follow-up with the on-call primary care physician for further monitoring of symptoms DS: Summary Hospital Course Hospital Course: Date of admission: 06/29/2021 Date of discharge: 07/03/2021 Phani Bedoya is a 26-year-old previously healthy male who presented to the emergency department on 06/29/2021 with complaints of shortness of breath ongoing for 4 days. He had been the ED earlier that morning and was tested for COVID, with a negative rapid test. PCR was performed on his subsequent visit and found to be positive. Upon presentation to the emergency department, he was mildly tachypneic and tachycardic with additional vital signs stable, H&H slightly decreased, additional CBC and BMP unremarkable, CXR showed airspace opacities and CTA was negative for pulmonary embolism. He was admitted to the hospitalist service for further evaluation management. Please see above for further details. He did have symptomatic improvement with treatment as discussed above. He was feeling better and requested discharge home. He lives with his family who will be able to provide assistance to him if needed. He will follow-up with the on-call primary care physician. Discussed the importance of establishing care with a PCP for close monitoring. We discussed COVID precautions, as well as worrisome signs and symptoms for which to return and he was educated on his medications. He was discharged in hemodynamically stable condition on 07/03/2021. Status at Discharge Functional status at discharge: independent ambulation Overall status at discharge: patient is progressing back to baseline Time Spent with Patient Time attestation: Total time spent providing and/or coordinating discharge services: 45 minutes Time spent: Greater than 30 minutes Exam Narrative: Mr. Bedoya is well-nourished, well-appearing 26-year-old male who is lying supine in bed. He appears comfortable and is in NARD. Neuro: awake, alert and oriented x4, speech clear, no focal neuro deficits noted HEENMT: normocephalic, atraumatic, EOMI, sclerae anicteric Neck: supple, no lymphadenopathy Respiratory: Clear to auscultation bilaterally, nonlabored breathing Cardio: regular rate, regular rhythm with S1-S2 Abdomen: nondistended, normoactive bowel sounds, soft, nontender to palpation Extremities: no edema, erythema, or tenderness to palpation, DP pulses 2+ bilaterally Skin: no rashes or lesions, warm and dry Psych: appropriate mood and affect, judgment and insight intact DS: Data Data Completed and Pending Labs on day of discharge: Melo
[2021-07-03 16:53] LABS: Mycoplasma IgM Antibody Titer 92 U/mL (<770)
== END 2021-07-03 14:32 | disposition home or self-care (01) | DRG 137 ==
LOC: ANHED 20:58 → ANH3MEDSUR 22:15
PROVIDERS: Physician Assistant; Admitting Provider Internal Medicine; Emergency Provider Emergency Medicine; Visit Provider Internal Medicine
DX: U07.1 COVID-19 (principal); J12.82 Pneumonia due to coronavirus disease 2019; J96.01 Acute respiratory failure with hypoxia
CPT/HCPCS: 36415; 71275; 80053; 82565; 82728; 83615; 83880; 84145; 84460; 85025; 85027; 85610; 86140; 86738; 87040; 93005; 94618; 94640; 96365; 96374; 96375; 99285; A9270; C9803; G0378; G0379; J0456; J0696; J1100; J1650; Q9967; U0003; U0005